=== PATIENT | male | born 2000 | race Caucasian/White ===

== ENCOUNTER → 2021-04-14 | Outpatient (CLI) | payer OTHER ==
[~2021-04-14] MED LIST: ZITHROMAX250 MG PO
== END ==
LOC: KOH-I 15:15
DX: S92.321A Displaced fracture of second metatarsal bone, right foot, initial encounter for closed fracture (principal); S92.311A Displaced fracture of first metatarsal bone, right foot, initial encounter for closed fracture; S92.331A Displaced fracture of third metatarsal bone, right foot, initial encounter for closed fracture; X58.XXXA Exposure to other specified factors, initial encounter
CPT/HCPCS: 73700

== ENCOUNTER → 2021-05-04 | Outpatient (CLI) | payer OTHER | LOC: KOH-I 10:45 | DX: S92.311A Displaced fracture of first metatarsal bone, right foot, initial encounter for closed fracture (principal); S92.321A Displaced fracture of second metatarsal bone, right foot, initial encounter for closed fracture; S92.334A Nondisplaced fracture of third metatarsal bone, right foot, initial encounter for closed fracture | CPT/HCPCS: 73630 ==

== ENCOUNTER → 2021-06-04 | Outpatient (CLI) | payer OTHER | LOC: KOH-I 09:00 | DX: S92.311D Displaced fracture of first metatarsal bone, right foot, subsequent encounter for fracture with routine healing (principal); S92.321D Displaced fracture of second metatarsal bone, right foot, subsequent encounter for fracture with routine healing; S92.331D Displaced fracture of third metatarsal bone, right foot, subsequent encounter for fracture with routine healing | CPT/HCPCS: 73630 ==